=== PATIENT | female | born 1985 | race Asian ===

== ENCOUNTER 2024-10-31 05:39 | Inpatient (IN) ==
--- NOTE | 2024-10-22 16:09 | Anesthesiology Consultation ---
Date of Service October 22, 2024 Assessment & Plan (1) Encounter for pre-operative examination: Infectious disease screening: Per assessment on 10/22/24- No known recent infectious disease contacts or current infectious disease symptoms. 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 History Surgery Operation Date: 10/31/24 07:30 Proposed Procedures p Section (Delivery of Baby Through Abdominal Incision) - Kayleigh Purcell MD Height/Weight Height: 5 ft 5.35 in Weight: 78.471 kg Allergies Allergy/AdvReac Type Severity Reaction Status Date / Time Penicillins Allergy Intermediate Rash Verified 10/22/24 15:22 Cephalosporins Allergy Unknown Unknown Verified 10/22/24 15:23 Medications Home Medications Medication Instructions Recorded Confirmed Last Taken acetone (urine) test (Ketone Urine #50 ea 09/02/24 10/21/24 Unknown Test strips) blood-glucose sensor (FreeStyle #2 ea 09/02/24 10/21/24 Unknown Shantel 3 Plus Sensor device) + DHA 1 tab PO HS 10/22/24 10/22/24 Unknown calcium carbonate 500 mg PO BID PRN Indigestion 10/22/24 10/22/24 Unknown cholecalciferol (vitamin D3) 25 50 mcg PO HS 10/22/24 10/22/24 Unknown mcg (1,000 unit) capsule (Vitamin D3) famotidine 20 mg tablet 20 mg PO DAILY PRN Indigestion 10/22/24 10/22/24 Unknown levothyroxine 25 mcg tablet 50 mcg PO QAM 10/22/24 10/22/24 Unknown Past Medical History Medical History Acid reflux Intermittent Gestational diabetes Diet controlled, no meds Wearing a freestyle shantel 3 History of depression After 1st 2016, no treatment at that time Hx of gastritis Hypothyroid in , antepartum Iron deficiency anemia Past Family History Family History Mother Hypertension Grandmother (Paternal) Heart disease Other No family history of adverse response to anesthesia Denies family history of Ovarian cancer Breast cancer Colorectal cancer Past Surgical History Surgical History History of esophagogastroduodenoscopy (EGD) S/P section (2017) Social History Smoking Status: Never smoker Do You Dip or Chew Tobacco: No Hx Alcohol Use: No Hx Substance Use: No substance use type: does not use
--- NOTE | 2024-10-30 12:50 | History & Physical Report ---
Date of Service October 30, 2024 Assessment & Plan (1) Previous delivery affecting , antepartum: (2) Gestational diabetes mellitus (GDM) affecting , antepartum: (3) Hypothyroid in , antepartum: Plan Discussed indications, risks, benefits, alternatives with risks including infection, bleeding, injury to adjacent structures (bowel, bladder, ureters, blood vessels, nerves, baby), possible need for blood transfusion and/or life saving hysterectomy, VTE. Consent reviewed in detail w/ pt and signed after all questions answered to her satisfaction. Plan for gent/clinda due to ancef allergy History of Present Illness Chief Complaint: preop Primary Care Provider: NICK Hodgson 39 yo at 39 3/7 wga presents for preop to planned repeat CS. 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 cycles denies hx stis Allergies Allergy/AdvReac Type Severity Reaction Status Date / Time Penicillins Allergy Intermediate Rash Verified 10/30/24 10:02 Cephalosporins Allergy Unknown Unknown Verified 10/30/24 10:02 Home Medications Medication Instructions Recorded Confirmed Type acetone (urine) test (Ketone Urine #50 ea 09/02/24 10/30/24 Rx Test strips) blood-glucose sensor (FreeStyle #2 ea 09/02/24 10/30/24 Rx Adina 3 Plus Sensor device) + DHA 1 tab PO HS 10/22/24 10/30/24 History calcium carbonate 500 mg PO BID PRN Indigestion 10/22/24 10/30/24 History cholecalciferol (vitamin D3) 25 50 mcg PO HS 10/22/24 10/30/24 History mcg (1,000 unit) capsule (Vitamin D3) famotidine 20 mg tablet 20 mg PO DAILY PRN Indigestion 10/22/24 10/30/24 History levothyroxine 25 mcg tablet 50 mcg PO QAM 10/22/24 10/30/24 History Patient History Medical History Acid reflux Intermittent Gestational diabetes Diet controlled, no meds Wearing a freestyle adina 3 History of depression After 1st 2016, no treatment at that time Hx of gastritis Hypothyroid in , antepartum Iron deficiency anemia Surgical History History of esophagogastroduodenoscopy (EGD) S/P section (2017) Family History Mother Hypertension Grandmother (Paternal) Heart disease Other No family history of adverse response to anesthesia Denies family history of Ovarian cancer Breast cancer Colorectal cancer Social History Smoking Status: Never smoker Second Hand Exposure: No; Do You Dip or Chew Tobacco: No; Hx Alcohol Use: No Hx Substance Use: No Preferred Language: Mandarin Spanish Communication Ability: Effective Communication Ability Comment: able to answer questions without issues Communication Tools: Language Line Director Of Loss Prevention Visual Impairment: No Limitations Hearing Ability: Normal Director Of Loss Prevention Required: Yes and Voice Beliefs That Will Affect Care: None marital status: marital status details: Arpit Doll (40) [phone] Current Living Situation: Spouse and Family Current Living Situation Comment: lives with spouse, son current occupational status: student 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 [employer] How many Children do You have: 1 Feels Safe at Home: Yes Childhood Exposure to Second-Hand Smoke: No Diet: regular caffeine: No during the past year weight has: remained stable Dental Care, Regularly: Yes Physical Activity Frequency: 3-4 Times per Week Physical Activity Frequency Comment: Swims, walks Seatbelt Use: always Sunscreen Use: Yes Do you think of yourself as: straight/heterosexual Sexual Activity: has been sexually active within the last 12 months Gender Identity: Female Assistive Devices: Glasses Physical Exam Respiratory: normal respiratory effort; no respiratory distress and no labored breathing Genitourinary: NST reactive Coding Level of Care Code None Diagnoses Previous delivery affecting , antepartum O34.219 Gestational diabetes mellitus (GDM) affecting , antepartum O24.419 Hypothyroid in , antepartum O99.280; E03.9
[2024-10-31] MEDS ORDERED: LACTATED RINGER'S 1,000 ML IV SCH (06:00)
[2024-10-31] MEDS: LACTATED RINGER'S 1,000 ML IV SCH (06:17)
[2024-10-31 06:24] LABS: Hematocrit (blood only) 36.4 % (37.0-47.0); Hemoglobin 12.4 g/dl (12.0-16.0); Immature Granulocytes # (auto) 0.16 K/uL (0.01-0.20); Immature Granulocytes % (auto) 1.3 %; Mean Corpuscular Hemoglobin 32.4 pg (25.0-34.0); Mean Corpuscular Volume 95.0 fL (80.0-100.0); Platelet Count 267 K/uL (130-400); RDW Standard Deviation 45.4 fL (36.4-46.3); Red Blood Count 3.83 M/uL (4.20-5.40); White Blood Count 12.06 K/ul (4.8-10.8)
[2024-10-31] MEDS: ACETAMINOPHEN 500 MG TAB PO SCH (06:29)
[2024-10-31] MEDS: GENTAMICIN SULFATE 400 MG in DEXTROSE 5% 100 ML IV SCH (06:31)
[2024-10-31] MEDS ORDERED: PHENYLEPHRINE HCL 10 MG/ML VIAL ONE (06:56)
[2024-10-31] MEDS ORDERED: MoRPHine SULFATE PF 1 MG/ML 10 ML AMP/VIAL ONE (07:03)
[2024-10-31] MEDS ORDERED: ONDANSETRON INJ 2 MG/ML 2 ML VIAL ONE (07:04)
[2024-10-31] MEDS ORDERED: METOCLOPRAMIDE HCL INJ 5 MG/ML 2 ML VIAL ONE (07:04)
[2024-10-31] MEDS ORDERED: DEXAMETHASONE SOD INJ 4 MG/ML VIAL ONE (07:04)
[2024-10-31] MEDS ORDERED: OXYTOCIN 10 UNITS/ML VIAL ONE ×3 (07:06→08:25)
[2024-10-31] MEDS: CITRIC ACID/SODIUM CITRATE 15 ML UDC PO SCH (07:32)
[2024-10-31] MEDS: CLINDAMYCIN/D5W 900 MG/50 ML BAG IV SCH (07:33)
[2024-10-31] MEDS ORDERED: PROMETHAZINE 6.25 MG/50.25 ML BAG IV PRN (07:45)
[2024-10-31] MEDS ORDERED: ONDANSETRON INJ 2 MG/ML 2 ML VIAL IV PRN (07:45)
[2024-10-31] MEDS ORDERED: NALBUPHINE HCL INJ 10 MG/ML AMP IV PRN (07:45)
[2024-10-31] MEDS ORDERED: LACTATED RINGER'S 500 ML IV PRN (07:45)
[2024-10-31] MEDS ORDERED: NO NARCOTICS OR SEDATIVES SCH (07:45)
[2024-10-31] MEDS ORDERED: MoRPHine SULFATE 2 MG/ML CARP IV PRN (07:45)
[2024-10-31] MEDS ORDERED: NALOXONE HCL 0.08 MG in SYRINGE 1.8 ML IV PRN (07:45)
[2024-10-31] MEDS ORDERED: NALOXONE HCL 0.4 MG/1 ML VIAL/CARP IV PRN (07:45)
[2024-10-31] MEDS ORDERED: NALOXONE HCL 1 MG in SODIUM CHLORIDE 0.9% 1,000 ML IV PRN (07:45)
[2024-10-31] MEDS ORDERED: DC INTRASPINAL MORPHINE SCH (07:45)
[2024-10-31] MEDS ORDERED: ePHEDrine sulfate 50 MG/5 ML SYR ONE (08:12)
[2024-10-31] MEDS ORDERED: HYDROCORTISONE ACETATE 25 MG SUPP PR PRN (08:40)
[2024-10-31] MEDS ORDERED: BENZOCAINE 20% SPRY 85 APPLN/85 GM CAN EXT PRN (08:40)
[2024-10-31] MEDS ORDERED: CALCIUM CARBONATE 500 MG CHEWABLE TAB PO PRN (08:40)
[2024-10-31] MEDS ORDERED: SENNA 8.6 MG TAB PO PRN (08:40)
[2024-10-31] MEDS ORDERED: MAGNESIUM HYDROXIDE SUSP 30 ML UDC PO PRN (08:40)
--- NOTE | 2024-10-31 08:48 | Operative Report ---
Post Operative Report Pre & Post Diagnosis Operation Date: 10/31/24 07:30 Intrauterine at 39 4/7 wga, CSx1, A1GDM I identified the patient and participated in the time-out.: Yes Procedure Operation Date: 10/31/24 07:30 Repeat Low Transverse Section Surgeon Kayleigh Purcell MD Bag Valver MD Justina Quantitative Blood Loss (QBL) 404 Findings Consistent with Post-Op Diagnosis Slightly enlarged uterus w/o obvious masses, normal appearing fallopian tubes and ovaries bilaterally. Viable female infant with APGARS 8 and 9 at 1 and 5 minutes, respectively. Specimens Placenta Drains Burnham draining clear urine Anesthesia Type Spinal Complications none Disposition Accompanied Patient To Recovery: Yes Disposition: L&D Indications 39 yo at 39 4/7 wga presents for planned repeat CS Description of Procedure The patient was taken to the operating room after consents were ensured. The patient was properly identified. Spinal anesthesia was obtained without difficulty. The patient was placed in a dorsal supine position with left lateral tilt, then prepped and draped in normal sterile fashion. Surgical time out was performed. Antibiotics were given for prophylaxis. Anesthesia was tested to ensure adequate surgical levels. Pfannenstiel skin incision was performed and carried down to the underlying fascia with a knife. The fascia was then nicked in the midline and extended laterally with pickups and Summers scissors. Superior portion of the fascia was grasped with Kochers x2 and elevated off the underlying rectus muscles using blunt dissection. Inferior portion of the fascia was then grasped with Yves clamps x2 and also elevated off the underlying muscles with blunt dissection. Midline was identified. The peritoneum was then entered and extended to provide adequate room for delivery of baby. A hand was inserted into the abdomen, uterus was noted to be clear of adhesions. Bladder blade was inserted, bladder flap was created in the usual fashion. A low transverse uterine incision was made in the uterus and extended bluntly in a superior to inferior fashion. Amniotomy was made with clear fluid at the time of rupture. head was grasped and elevated to the hysterotomy in an atraumatic fashion however head did not easily deliver through due to floating. Kiwi vacuum was applied to the flexion point with care to avoid maternal tissue. With fundal pressure, vacuum was pulled x1 and head delivered atraumatically w/o popoffs. The baby delivered in RUBEN position, nuchal cord was reduced. Remainder of the body delivered without incident. Nose and mouth were bulb suctioned on the surgical field. The cord was double clamped and cut, baby was handed off to awaiting pediatrics staff. Cord segment and blood were obtained. Placenta was then expressed from the uterus. The uterus was exteriorized. Several passes were made inside the uterus to remove the remaining membranes. Attention was then turned to the hysterotomy, which was then closed with a running locked suture of 0 Vicryl on a CTX needle. An imbricating layer was then performed using 0-Monocryl. There was noted to be good hemostasis. The posterior cul-de-sac was then inspected and cleaned of clot and debris. The hysterotomy was again inspected and noted to be hemostatic. The uterus was returned to the abdomen. The right and left pericolic gutters were cleaned of all clot and debris. The hysterotomy was again noted to be hemostatic. Space of Retzius was noted to be hemostatic. The fascia was then closed with a running suture of 0 Vicryl on a CT1 needle. Subcutaneous tissue was copiously irrigated and noted to be hemostatic. Subcutaneous tissue was re-approximated using 2-0 plain gut. The skin was then closed with a running suture of 3-0 Monocryl in a subcuticular fashion. At termination of the procedure, fundal pressure was applied and a moderate amount of lochia was expressed. Pressure dressing was ap plied to the patient. She tolerated the procedure well. All sponge, needle, instrument counts were correct x 2. I attest to the content of the Intraoperative Record and any orders documented therein. Any exceptions are noted below. OB Procedure Charges 50230
[2024-10-31] MEDS: KETOROLAC 30 MG/ML VIAL IV SCH (09:08)
[2024-10-31] MEDS: OXYTOCIN 20 UNITS/LR 1,002 ML IV SCH (10:49)
--- NOTE | 2024-10-31 13:01 | Anesthesiology Progress Note ---
Date of Service October 31, 2024 Anesthesia Post Procedure Vital Signs Vital Signs: Temp Pulse Resp BP Pulse Ox 10/31/24 10:54 81 95 10/31/24 10:49 79 96 10/31/24 10:46 82 108/57 L 10/31/24 10:44 37.2 C 20 10/31/24 10:44 79 94 10/31/24 10:39 73 95 10/31/24 10:34 75 94 10/31/24 10:29 88 95 10/31/24 10:24 77 94 10/31/24 10:21 74 94 10/31/24 10:19 78 95 10/31/24 10:16 78 109/59 L 10/31/24 10:14 95 10/31/24 10:14 76 10/31/24 10:14 76 94 10/31/24 10:09 77 97 10/31/24 10:04 73 97 10/31/24 09:59 90 99 10/31/24 09:54 90 97 10/31/24 09:49 77 96 10/31/24 09:44 20 10/31/24 09:44 98 10/31/24 09:44 84 10/31/24 09:44 85 112/55 L 10/31/24 09:39 88 97 10/31/24 09:36 90 120/69 10/31/24 09:34 20 10/31/24 09:34 88 99 10/31/24 09:31 85 94 10/31/24 09:29 86 98 10/31/24 09:24 20 10/31/24 09:24 90 100/63 96 10/31/24 09:19 87 96 10/31/24 09:14 20 10/31/24 09:14 84 97/56 L 96 10/31/24 09:09 96 10/31/24 09:09 96 H 10/31/24 09:09 92 H 94 10/31/24 09:04 20 10/31/24 09:04 97 10/31/24 09:04 82 10/31/24 09:04 83 101/60 10/31/24 08:59 85 98 10/31/24 08:54 18 10/31/24 08:54 87 97/55 L 100 10/31/24 08:49 83 96 10/31/24 08:44 36.4 C L 16 10/31/24 08:44 90 102/56 L 97 10/31/24 06:05 70 109/72 10/31/24 05:59 36.5 C 18 Transfer of Care Handoff Completed per policy Notes Mental Status: alert / awake / arousable Patient Amnestic to Procedure: Yes Nausea / Vomiting: adequately controlled Pain: adequately controlled Airway Patency, RR, SpO2: stable & adequate BP & HR: stable & adequate Hydration State: stable & adequate Neuraxial Anesthesia: was administered and sensory block is resolving Anesthetic Complications: no major complications apparent
[2024-10-31] MEDS: SIMETHICONE 80 MG CHEW PO SCH (14:35)
[2024-10-31] MEDS: ACETAMINOPHEN 325 MG TAB PO SCH (14:35)
[2024-10-31] MEDS: DOCUSATE SODIUM 100 MG CAP PO SCH (20:38)
[2024-10-31] MEDS: diphenhydrAMINE 50 MG/ML VIAL IV PRN (22:57)
[2024-11-01] MEDS ORDERED: diphenhydrAMINE 50 MG/ML VIAL IV PRN (01:50)
[2024-11-01] MEDS ORDERED: PROMETHAZINE 12.5 MG/50.5 ML BAG IV PRN (01:50)
[2024-11-01] MEDS ORDERED: diphenhydrAMINE Capsule 25 MG CAP PO PRN (01:50)
[2024-11-01] MEDS ORDERED: ONDANSETRON INJ 2 MG/ML 2 ML VIAL IV PRN (01:50)
[2024-11-01] MEDS ORDERED: HYDROmorphone INJ 0.5 MG/0.5 ML SYR IV PRN (01:50)
--- NOTE | 2024-11-01 06:15 | Obstetrical Progress Note ---
Date of Service <Sruthi Tejeda DO - Last Filed: 11/01/24 07:04> November 01, 2024 Assessment & Plan <Sruthi Tejeda DO - Last Filed: 11/01/24 07:04> (1) care following delivery: Plan 39 yo post- day 1 s/p C/S. Feels well today. Vital signs stable Continue post- care Encourage ambulation and Pain controlled with ibuprofen Hgb stable <Kayleigh Purcell MD - Last Filed: 11/01/24 07:21> (1) care following delivery: Subjective <Sruthi Tejeda DO - Last Filed: 11/01/24 07:04> 39 yo post- day 1 s/p C/S. Ambulation: ambulating normally Voiding: no voiding problems Passing Gas:: Yes Passing Stool::No Diet Tolerance:: regular diet Lochia:: Small Feeding Type:: bottle and breast feeding Current Pain Level: 3/10 Resting comfortably this AM in NAD.Reports generalized itchiness and some pain with urination. Denies LEHMAN, CP, SOB, N/V/D, LE pain/swelling. Review of Systems All systems reviewed & are unremarkable except as noted in HPI & below Physical Exam <Sruthi Tejeda DO - Last Filed: 11/01/24 07:04> General: patient resting comfortably, NAD, non-toxic in appearance, AA&O x 4, answers questions appropriately. Skin: warm, dry, intact HEENT: NC/AT, anicteric sclera, conjunctiva without injection, moist mucus membranes. Heart: +S1/S2, regular, no m/r/g Lungs: equal air entry bilaterally, no rales/rhonchi/wheezes Abd: +BS, soft, NT/ND, uterine fundus firm at umbilicus, caesarean incision not visualized as patient declines. Ext: warm, no clubbing/cyanosis or edema, Giovanni's neg. Neuro: nonfocal, patient AA&O x 4, speech intact, no facial droop, moving all extremities on command. Results & Data <Sruthi Tejeda DO - Last Filed: 11/01/24 07:04> Vital Signs (Past 12 Hours) Vital Signs Temp Pulse Pulse Resp BP Pulse Ox O2 Del Method 11/01/24 04:30 36.9 C 78 16 104/63 95 Room Air 11/01/24 01:20 16 94 11/01/24 00:20 16 95 11/01/24 00:00 37.3 C 71 16 103/63 95 Room Air 10/31/24 23:20 16 95 10/31/24 22:20 16 95 10/31/24 21:20 18 96 10/31/24 20:20 16 95 10/31/24 19:20 16 94 10/31/24 19:20 37.1 C 70 16 109/63 94 Room Air Laboratory Results OB Labs: Blood Type B Positive 04/04/24 Antibody Screen NEGATIVE 04/04/24 Hgb 11.1 g/dl (12.0-16.0) L 08/07/24 Hct 32.5 % (37.0-47.0) L 08/07/24 MCV 93.0 fL (80.0-100.0) 04/04/24 Plt Count 318 K/uL (130-400) 04/04/24 Rubella IgG Antibody Immune (Immune) 04/04/24 Treponema pallidum Ab Negative (Negative) 08/07/24 Hep Bs Antigen Negative (Negative) 04/04/24 Hepatitis C Antibody Negative (Negative) 04/04/24 HIV 1&2 Ab/P24 Ag 4thGn Negative (Negative) 04/04/24 Glucose 1 Hr 50 gm 172 mg/dl (70-130) H 05/14/24 OB Optional Labs: Chlamydia trachomatis RNA Not Detected (NotDetected) 04/04/24 Neisseria gonorrhoeae RNA Not Detected (NotDetected) 04/04/24 Thyroid Stimulating Hormone (TSH) 0.520 uIu/ml (0.300-4.500) 09/03/24 Supervising Physician <Kayleigh Purcell MD - Last Filed: 11/01/24 07:21> Co-Signing Physician Notes Resident Physician Supervision Note: I interviewed and examined the patient. Discussed with Dr. Tejeda and agree with findings and plan as documented in the note. Any exceptions or clarifications are listed here: POD1 s/p rLTCS, doing well. VSS, exam benign, dressing c/d/i. Continue routine care Documented By: Kayleigh Purcell MD Resident Activity Tracking <Sruthi Tejeda, DO - Last Filed: 11/01/24 07:04> Resident Involvement: Resident Care Provided Care Provided: OB Delivery
[2024-11-01 07:16] LABS: Hematocrit (blood only) 31.0 % (37.0-47.0); Hemoglobin 10.7 g/dl (12.0-16.0); Immature Granulocytes # (auto) 0.15 K/uL (0.01-0.20); Immature Granulocytes % (auto) 1.0 %; Mean Corpuscular Hemoglobin 32.8 pg (25.0-34.0); Mean Corpuscular Volume 95.1 fL (80.0-100.0); Platelet Count 216 K/uL (130-400); RDW Standard Deviation 45.7 fL (36.4-46.3); Red Blood Count 3.26 M/uL (4.20-5.40); White Blood Count 14.42 K/ul (4.8-10.8)
[2024-11-01] MEDS: PRENATAL VITAMIN 1 TAB PO SCH (07:41)
[2024-11-01] MEDS: FERROUS SULFATE 325 MG TAB PO SCH (07:41)
[2024-11-01] MEDS: LEVOTHYROXINE SODIUM 50 MCG TABLET PO SCH (07:41)
[2024-11-01] MEDS ORDERED: KETOROLAC 30 MG/ML VIAL IV PRN (08:40)
[2024-11-01] MEDS: IBUPROFEN 600 MG TAB PO SCH (11:23)
[2024-11-02 06:41] LABS: Hematocrit (blood only) 29.2 % (37.0-47.0); Hemoglobin 10.4 g/dl (12.0-16.0)
--- NOTE | 2024-11-02 06:52 | Obstetrical Progress Note ---
Date of Service <Sruthi Tejeda DO - Last Filed: 11/02/24 08:15> November 02, 2024 Assessment & Plan <Sruthi Tejeda DO - Last Filed: 11/02/24 08:15> (1) care following delivery: Plan 39 yo post- day 2 s/p . Feels well today. Vital signs stable Continue post- care Encourage ambulation and Pain controlled with ibuprofen Hgb stable Patient would like to stay another day, continue to monitor <Kiara Gant MD, FACOG - Last Filed: 11/02/24 08:24> (1) care following delivery: Subjective <Sruthi Tejeda DO - Last Filed: 11/02/24 08:15> 39 yo post- day 2 s/p . Ambulation: ambulating normally Voiding: no voiding problems, mild dysuria improving from yesterday Passing Gas:: Yes Passing Stool:: Yes Diet Tolerance:: regular diet Lochia:: Small Feeding Type:: breast and bottle feeding Current Pain Level: 4/10 Resting comfortably this AM in NAD. Denies LEHMAN, CP, SOB, N/V/D, LE pain/swelling. Review of Systems All systems reviewed & are unremarkable except as noted in HPI & below Breast: + breast pain (mild, mostly after ) Genitourinary (female): + dysuria (mild, improving since yesterday) Physical Exam <Sruthi Tejeda DO - Last Filed: 11/02/24 08:15> General: patient resting comfortably, NAD, non-toxic in appearance, AA&O x 4, answers questions appropriately. Skin: warm, dry, intact HEENT: NC/AT, anicteric sclera, conjunctiva without injection, moist mucus membranes. Heart: +S1/S2, regular, no m/r/g Lungs: equal air entry bilaterally, no rales/rhonchi/wheezes Abd: +BS, soft, NT/ND, uterine fundus firm 3 finger breadths below umbilicus, caesarean incision C/D/I. Ext: warm, no clubbing/cyanosis or edema, Giovanni's neg. Neuro: nonfocal, patient AA&O x 4, speech intact, no facial droop, moving all extremities on command. Results & Data <Sruthi Tejeda DO - Last Filed: 11/02/24 08:15> Vital Signs (Past 12 Hours) Vital Signs Temp Pulse Resp BP Pulse Ox O2 Del Method 11/01/24 22:51 36.7 C 77 16 104/64 96 Room Air 11/01/24 19:11 36.7 C 81 16 101/64 95 Room Air Laboratory Results OB Labs: Blood Type B Positive 04/04/24 Antibody Screen NEGATIVE 04/04/24 Hgb 11.1 g/dl (12.0-16.0) L 08/07/24 Hct 32.5 % (37.0-47.0) L 08/07/24 MCV 93.0 fL (80.0-100.0) 04/04/24 Plt Count 318 K/uL (130-400) 04/04/24 Rubella IgG Antibody Immune (Immune) 04/04/24 Treponema pallidum Ab Negative (Negative) 08/07/24 Hep Bs Antigen Negative (Negative) 04/04/24 Hepatitis C Antibody Negative (Negative) 04/04/24 HIV 1&2 Ab/P24 Ag 4thGn Negative (Negative) 04/04/24 Glucose 1 Hr 50 gm 172 mg/dl (70-130) H 05/14/24 OB Optional Labs: Chlamydia trachomatis RNA Not Detected (NotDetected) 04/04/24 Neisseria gonorrhoeae RNA Not Detected (NotDetected) 04/04/24 Thyroid Stimulating Hormone (TSH) 0.520 uIu/ml (0.300-4.500) 09/03/24 Labs Reviewed: cfdna-low risk--mln Supervising Physician <Kiara Gant MD, FACOG - Last Filed: 11/02/24 08:24> Co-Signing Physician Notes Resident Physician Supervision Note: I interviewed and examined the patient. Discussed with Dr. Tejeda and agree with findings and plan as documented in the note. Any exceptions or clarifications are listed here: stable doing well, need narcotic for pain control and concerned about that. concerned about no bm. breast feeding going well. eating, voiding, ambulating in halls. abd soft ff 2 down nt, incision c/d/. ext nt calves. pod#2 s/p repeat c/s, doing well, routine care. reviewed use of pain meds postop. methods to help any constipation reviewed. rh pos, ri, . hgb noted. Documented By: Kiara Gant MD, FACOG Resident Activity Tracking <Sruthi Tejeda, - Last Filed: 11/02/24 08:15> Resident Involvement: Resident Care Provided Care Provided: OB Delivery
[2024-11-02] MEDS: IBUPROFEN 600 MG TAB PO PRN (08:17)
[2024-11-02] MEDS: ACETAMINOPHEN 325 MG TAB PO PRN (17:46)
[2024-11-03 00:23] VITALS: RESP 16; O2SAT 94
[2024-11-03] MEDS: MoRPHine SULFATE PF 1 MG/ML 10 ML AMP/VIAL INT SPINAL ONE (07:26)
[2024-11-03] MEDS: DIPHTHER/TETAN/PERTUS Vaccine (Tdap, Adol/Adult) 0.5mL IM ONE (07:26)
[2024-11-03] MEDS: SODIUM CHLORIDE 0.9% 1,000 ML IV SCH (07:27)
[2024-11-03] MEDS: LACTATED RINGER'S 1,000 ML IV SCH (07:27)
--- NOTE | 2024-11-03 08:44 | Obstetrical Progress Note ---
Date of Service November 03, 2024 Assessment & Plan (1) care following delivery: POD#3 doing well. Taking oxycodone for pain - concerned she will need this after discharge from hospital, she and I agreed upon outpatient Rx oxycodone 5mg #20 tablets, will also send Rx for tylenol, ibuprofen, and colace per her request. She requests to stay until POD#4 - will plan for DC home tomorrow. Subjective Ambulation: ambulating normally Voiding: no voiding problems Diet Tolerance:: regular diet Lochia:: Moderate Review of Systems All systems reviewed & are unremarkable except as noted in HPI & below Physical Exam Constitutional WD/WN, vitals as above no acute distress Respiratory normal respiratory effort Cardiovascular Rate/Rhythm: regular rate and regular rhythm Gastrointestinal (Abdomen) Inspection/Auscultation: abdomen normal to inspection; abdomen not distended Percussion/Palpation: abdomen soft Genitourinary OB Exam Abdomen: + fundal height Fundus: + firm; not tender Results & Data Vital Signs (Past 12 Hours) Vital Signs Temp Pulse Resp BP Pulse Ox O2 Del Method 11/03/24 00:00 37.3 C 72 16 109/67 94 Room Air 11/02/24 21:45 36.8 C 78 18 106/73 95 Room Air
[2024-11-03 12:38] VITALS: BP 117/76; TEMP 99
[2024-11-03 13:39] VITALS: PULSE 71
--- NOTE | 2024-11-05 07:50 | Discharge Summary ---
Date of Service November 05, 2024 Admission HPI Per Admitting Provider 39 yo at 39 3/7 wga presents for preop to planned repeat CS. 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 Post-operative course was uncomplicated and she was discharged home on POD3 Coding Level of Care Code None Diagnoses care following delivery Z39.2
== END 2024-11-03 15:15 | disposition home or self-care (01) | DRG 788 ==
LOC: 4S1 05:39 → EDSTATUS 07:30 → 4E2 10:55